=== PATIENT | female | born 1995 | race Caucasian/White ===

== ENCOUNTER 2019-09-11 17:11 | Emergency (ER) | payer BC ==
--- NOTE | 2019-09-11 17:23 | ER Document Report ---
ED Medical Screen (RME) - General Stated Complaint: BLOWN RIGHT PUPIL/HEADACHE/BLURRY VISION Notes: Patient is a 24-year-old white female with no reported past medical history presents to the emergency department the chief complaint of headache and unequal pupils. She was way at work and gone to the tanning bed on her break. States she used the necessary eye protection when she got out she noticed she had a right-sided headache. Her coworker looked at her and noticed her pupils were unequal and they sent her to an urgent care. Urgent care then referred her here for further evaluation. She admits to some blurriness in the right eye and pain to the right parietal area. Denies any numbness tingling or weakness. No nausea or vomiting. No neck pain, chest pain or shortness of breath. I have treated and performed a rapid initial assessment of this patient. A comprehensive ED assessment and evaluation of the patient, analysis of test results and completion of medical decision making process will be conducted by additional ED providers. PHYSICAL EXAMINATION: GENERAL: Right pupil dilated, unequal from left. AXO x4. Normal speech. Normal gait. Triage nurse and ED attendings notified of patient status immediately upon evaluation. Should be sent straight to CT scan and placed in room 4 for evaluation by ED attending.
--- NOTE | 2019-09-11 17:40 | ER Document Report ---
ED General - General Mode of Arrival: Ambulatory Information source: Patient TRAVEL OUTSIDE OF THE [place] IN LAST 30 DAYS: No - HPI Onset: Just prior to arrival Onset/Duration: Sudden, Persistent Quality of pain: No pain Severity: Mild Pain Level: 1 Associated symptoms: Headache Exacerbated by: Denies Relieved by: Denies Similar symptoms previously: No Recently seen / treated by doctor: No <TIMOTHY SALDIVAR JR - Last Filed: 09/11/19 18:36> <AYE MOSELEY IV - Last Filed: 09/11/19 21:56> - General Stated Complaint: BLOWN RIGHT PUPIL/HEADACHE/BLURRY VISION Time Seen by Provider: 09/11/19 17:39 Primary Care Provider: BILLY SOLIZ MD [HONORARY] - Follow up as needed Notes: triage note [facility] ED Medical Screen (RME) - General Stated Complaint: BLOWN RIGHT PUPIL/HEADACHE/BLURRY VISION Notes: Patient is a 24-year-old white female with no reported past medical history presents to the emergency department the chief complaint of headache and unequal pupils. She was way at work and gone to the tanning bed on her break. States she used the necessary eye protection when she got out she noticed she had a right-sided headache. Her coworker looked at her and noticed her pupils were unequal and they sent her to an urgent care. Urgent care then referred her here for further evaluation. She admits to some blurriness in the right eye and pain to the right parietal area. Denies any numbness tingling or weakness. No nausea or vomiting. No neck pain, chest pain or shortness of breath. my notes 24-year-old female with right pupil around 1 cm dilated greater than left pupil 7 mm. Patient also had right-sided headache with some anxiety and shortness of breath beginning around 1600 at [employer] where she works. CTA head was negative by 1800 and therefore MRI was ordered. Patient denies any thyroid problems denies any pulmonary embolism or PE problems in the past. She denies any blurry vision. 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 Visual acuity by Snellen within normal limits. Patient has worn contacts since she was 12 years old. 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 patient reports her mother had thyroidectomy while she was at a young age but she denies any history of same. Patient sisters had a history of Robby's thyroiditis. Patient reports she does not drink or smoke and works out on a daily basis. Her headache is unusual presentation for her. (Jeff SALDIVAR JR) - Related Data Allergies/Adverse Reactions: Sulfa (Sulfonamide Antibiotics) Allergy (Verified 09/11/19 18:12) Past Medical History - General Information source: Patient - Social History Smoking Status: Never Smoker Cigarette use (# per day): No Chew tobacco use (# tins/day): No Smoking Education Provided: No Frequency of alcohol use: None Drug Abuse: None Lives with: Family Family History: Reviewed & Not Pertinent <TIMOTHY SALDIVAR JR - Last Filed: 09/11/19 18:36> Physical Exam - Vital signs Interpretation: Normal <TIMOTHY SALDIVAR JR - Last Filed: 09/11/19 18:36> - Vital signs Vitals: Temp Pulse Resp BP Pulse Ox 98.5 F 64 16 129/77 H 99 09/11/19 17:17 09/11/19 17:17 09/11/19 17:17 09/11/19 17:17 09/11/19 17:17 Course - Laboratory Result Diagrams: 09/11/19 17:57 09/11/19 17:57 <TIMOTHY SALDIVAR JR - Last Filed: 09/11/19 18:36> - Laboratory Result Diagrams: 09/11/19 17:57 09/11/19 17:57 <AYE MOSELEY IV - Last Filed: 09/11/19 21:56> - Re-evaluation Re-evalutation: 09/11/19 21:42 Patient admits she used her boyfriends eyedrops prior to onset of symptoms today. MRI is unremarkable for acute pathology. Results of ED MSE discussed with patient. All questions were answered prior to discharge. Emergency signs and symptoms, reasons to return to the emergency department discussed with patient. (AYE MOSELEY IV) - Vital Signs Vital signs: Temp Pulse Resp BP Pulse Ox 98.4 F 65 16 111/85 100 09/11/19 18:07 09/11/19 18:12 09/11/19 19:01 09/11/19 19:00 09/11/19 19:01 - Laboratory Laboratory results interpreted by me: 09/11/19 17:57 Sodium 136.0 L Discharge <TIMOTHY SALDIVAR JR - Last Filed: 09/11/19 18:36> <LORELEIAYE RODRIGUEZ KRYSTEN - Last Filed: 09/11/19 21:56> - Discharge Clinical Impression: Adverse reaction to eye drug Qualifiers: Encounter type: initial encounter Qualified Code(s): T49.5X5A - Adverse effect of ophthalmological drugs and preparations, initial encounter Condition: Stable Disposition: HOME, SELF-CARE Additional Instructions: Return to the Emergency Department without delay if any worse. HOME CARE INSTRUCTIONS & INFORMATION: Thank you for choosing us for your medical needs. We hope you're satisfied with the care you received. After you leave, you must properly care for your problem and, at the same time, observe its progress. Any condition can change. Some illnesses can change rapidly over hours or days. If your condition worsens, return to the Emergency Department or see your physician promptly. ABOUT YOUR X-RAYS AND EKG'S: If you had an EKG or X-rays taken, they have been read by the Emergency Physician. The X-rays and EKG's will also be read by a Radiologist or Wind Up Operator within 24 hours. If discrepancies are noted, you will be notified by telephone. Please be certain the ED has a correct telephone number & address where you can be reached. Also, realize that some fractures or abnormalities do not show up on initial X-rays. If your symptoms continue, see your physician. ABOUT YOUR LABORATORY TEST: If you had laboratory tests, the results have been reviewed by the Emergency Physician. Some test results (for example cultures) may not be available for several days. You will be contacted if any test result shows you need additional treatment. Please be certain the ED has a correct telephone number and address where you can be reached. ABOUT YOUR MEDICATIONS: You will receive instructions on how to take your medicine on the prescription label you receive. Additional information may be provided by the Pharmacy. If you have questions afterwards, call the ED for clarification or further instructions. Some prescribed medications may cause drowsiness. Do not perform tasks such as driving a car or operating machinery without consulting your Pharmacist. If you feel you need a refill of pain medication, your condition will need re-evaluation. Please do not call for a refill of any medication. ABOUT YOUR SIGNATURE: Signature of this document acknowledges to followin. Understanding that you received emergency treatment and that you may be released before al medical problems are known or treated. Please be certain the ED has a correct phone number & address where you can be reached. 2. Acknowledgement that you will arrange for follow-up care as recommended. 3. Authorization for the Emergency Physician to provide information to your follow-up Physician in order to maximize your care. AT ANY TIME, IF YOUR SYMPTOMS CHANGE SIGNIFICANTLY OR WORSEN OR YOU DEVELOP NEW SYMPTOMS, RETURN TO THE EMERGENCY DEPARTMENT IMMEDIATELY FOR RE-EVALUATION. OUR GOAL IS TO PROVIDE EXCELLENT MEDICAL CARE! WE HOPE THAT WE HAVE MET YOUR EXPECTATIONS DURING YOUR EMERGENCY DEPARTMENT VISIT AND THAT YOU FEEL YOU HAVE RECEIVED EXCELLENT CARE! Forms: Return to Work Referrals: BILLY SOLIZ MD [HONORARY] - Follow up as needed
--- NOTE | 2019-09-11 18:04 | RADIOLOGY REPORT (SQ) ---
EXAM DESCRIPTION: CT HEAD WITHOUT IMAGES COMPLETED DATE/TIME: 09/11/2019 4:43 pm REASON FOR STUDY: r pupil blown, [place] COMPARISON: None. TECHNIQUE: Axial images acquired through the brain without intravenous contrast. Images reviewed wi th bone, brain and subdural windows. Additional sagittal and coronal reconstructions were generated. Images stored on PACS. All CT scanners at this facility use dose modulation, iterative reconstruction, and/or weight based d osing when appropriate to reduce radiation dose to as low as reasonably achievable (ALARA). [facility]: Dose Right [facility]: CareDose [facility]: Dose Right [facility]: Teradose 4D [facility]: Smart INBEP RADIATION DOSE: CT Rad equipment meets quality standard of care and radiation dose reduction techniq ues were employed. CTDIvol: 53.2 mGy. DLP: 937 mGy-cm. mGy. LIMITATIONS: None. FINDINGS: VENTRICLES: Normal size and contour. CEREBRUM: No masses. No hemorrhage. No midline shift. No evidence for acute infarction. Normal gra y/white matter differentiation. No areas of low density in the white matter. CEREBELLUM: No masses. No hemorrhage. No alteration of density. No evidence for acute infarction. EXTRAAXIAL SPACES: No fluid collections. No masses. ORBITS AND GLOBE: No intra- or extraconal masses. Normal contour of globe without masses. CALVARIUM: No fracture. PARANASAL SINUSES: No fluid or mucosal thickening. SOFT TISSUES: No mass or hematoma. OTHER: No other significant finding. IMPRESSION: NO ACUTE INTRACRANIAL IMAGING FINDINGS. EVIDENCE OF ACUTE STROKE: NO. COMMENT: Quality ID # [id number]: Final reports with documentation of one or more dose reduction techniques (e.g., Automated exposure control, adjustment of the mA and/or kV according to patient size, use of iterative reconstruction technique) TECHNICAL DOCUMENTATION: JOB ID: [id number] 2010 [employer]- All Rights Reserved Reading location - IP/workstation name: [email or web address]
[2019-09-11 18:18] LABS: ABSOLUTE EOSINOPHILS # (AUTO) 0.1 10^3/uL (0.0-0.6); ABSOLUTE LYMPHOCYTES (AUTO) 2.4 10^3/uL (0.5-4.7); ABSOLUTE MONOCYTES (AUTO) 0.4 10^3/uL (0.1-1.4); ABSOLUTE NEUT (AUTO) 3.3 10^3/uL (1.7-8.2); BASOPHILS % (AUTO) 0.6 % (0-2); EOSINOPHILS % (AUTO) 1.9 % (0-6); HEMATOCRIT 36.5 % (36.0-47.0); LYMPHOCYTES % (AUTO) 37.8 % (13-45); MEAN CORPUSCULAR HGB CONC 35.5 g/dL (32.0-36.0); MEAN CORPUSCULAR VOLUME 90 fl (80-97); MONOCYTES % (AUTO) 7.1 % (3-13); PLATELET COUNT 203 10^3/uL (150-450); RED BLOOD COUNT 4.05 10^6/uL (3.72-5.28); RED CELL DISTRIBUTION WIDTH 12.9 % (11.5-14.0); SEGMENTED NEUTROPHILS % (AUTO) 52.6 % (42-78); TOTAL CELLS COUNTED % (AUTO) 100 %; WHITE BLOOD COUNT 6.3 10^3/uL (4.0-10.5)
[2019-09-11 18:26] LABS: INTERNATIONAL RATION (INR) 0.96; PROTHROMBIN TIME 12.8 SEC (11.4-15.4)
[2019-09-11 18:27] LABS: PARTIAL THROMBOPLASTIN TIME 35.8 SEC (23.5-35.8)
[2019-09-11 18:30] LABS: ALBUMIN 4.4 g/dL (3.5-5.0); ALKALINE PHOSPHATASE 42 U/L (38-126); ANION GAP 5 (5-19); ASPARTATE AMINO TRANSFERASE 21 U/L (14-36); BILIRUBIN,TOTAL 0.4 mg/dL (0.2-1.3); BLOOD UREA NITROGEN 13 mg/dL (7-20); CALCIUM 9.6 mg/dL (8.4-10.2); CARBON DIOXIDE 29 mmol/L (22-30); CHLORIDE 102 mmol/L (98-107); GLUCOSE 89 mg/dL (75-110); POTASSIUM 3.8 mmol/L (3.6-5.0); TOTAL PROTEIN 6.9 g/dL (6.3-8.2)
--- NOTE | 2019-09-11 21:24 | RADIOLOGY REPORT (SQ) ---
EXAM DESCRIPTION: MR BRAIN WITHOUT IV CONTRAST COMPLETED DATE/TME: 09/11/2019 18:33 CLINICAL HISTORY: hanson COMPARISON: CT 09/11/2019 TECHNIQUE: Multiplanar images of the brain were obtained without the administration of intravenous contrast FINDINGS: Ventricles and sulci appear within normal limits for the patient's age. No evidence of midline shift or mass effect. No abnormal parenchymal signal noted. No areas of restricted diffusion to suggest acute infarct. No evidence to suggest hemorrhage. No extra-axial fluid collection. IMPRESSION: No acute abnormalities.
[2019-09-11 21:58] VITALS: BP 130/79
== END 2019-09-11 21:59 | disposition home or self-care (01) ==
LOC: ER 17:11
DX: T49.5X5A Adverse effect of ophthalmological drugs and preparations, initial encounter (principal); R51 Headache; H53.8 Other visual disturbances; H57.11 Ocular pain, right eye; X58.XXXA Exposure to other specified factors, initial encounter
CPT/HCPCS: 36415; 70450; 70551; 80053; 84443; 85025; 85610; 85730; 99284